=== PATIENT | female | born 1990 | race Caucasian/White ===

== ENCOUNTER 2020-01-27 20:26 | Emergency (ER) | payer OTHER ==
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
[2020-01-27] MEDS ORDERED: Ketorolac 30 MG/ML SDV IM ONE (21:26)
--- NOTE | 2020-01-28 11:36 | CR ---
Right knee: AP and lateral views of the right knee were obtained. Comparison: No previous knee exam. Medial and lateral joint compartments are maintained in height. No joint effusion is seen. No fracture or other bony abnormality is identified. Impression: 1. No abnormality is identified on 2 view right knee exam. Diagnostic code #1 This report was dictated in MDT
== END 2020-01-27 22:00 | disposition home or self-care (01) ==
LOC: JD.ED 20:26
DX: S80.01XA Contusion of right knee, initial encounter (principal); E66.9 Obesity, unspecified; Z68.38 Body mass index [BMI] 38.0-38.9, adult; V28.4XXA Motorcycle driver injured in noncollision transport accident in traffic accident, initial encounter
CPT/HCPCS: 73560; 81025; 96372; 99284; J1885; 99283